=== PATIENT | female | born 1975 | race Hispanic/Latino ===

== ENCOUNTER 2021-03-04 14:51 | Emergency (ER) | payer SELFPAY ==
[2021-03-04] MEDS ORDERED: Lidocaine 1% (PF) 30 ML VIAL ONE (15:08)
[2021-03-04] MEDS ORDERED: Bacitracin 1 PK ONE (15:34)
== END 2021-03-04 16:00 | disposition home or self-care (01) ==
LOC: CSHERS 14:51
DX: L60.0 Ingrowing nail (principal)
CPT/HCPCS: 10060; J2001

== ENCOUNTER 2023-07-29 01:16 | Observation (INO) | payer MEDICAID, OTHER ==
[2023-07-29] MEDS ORDERED: Ondansetron PF 4 MG/2 ML Vial IVP PRN (02:18)
[2023-07-29 02:22] VITALS: BMI 27.9
[2023-07-29] MEDS ORDERED: Lactated Ringer's 1,000 ML IV SCH (02:30)
[2023-07-29] MEDS: Morphine 2 MG/ML VIAL SLOW IVP PRN ×2 (03:29→07:52)
[2023-07-29 03:49] LABS: #Eosinphils 0.2 10x3/uL (0.0-0.5); #Monocytes 0.5 10x3/uL (0.0-1.1); #Neutrophils 4.8 10x3/uL (1.5-8.4); %Basophils 0.4 % (0.0-2.0); %Lymphocytes 32.3 % (18.0-47.0); %Monocytes 6.1 % (0.0-10.0); %Neutrophils 58.7 % (40.0-75.0); Hematocrit 25.4 % (34.9-44.5); Mean Corpuscular HGB CONC 35.4 g/dL (32.0-36.0); Mean Corpuscular Hemoglobin 31.9 pg (27.0-33.0); Mean Corpuscular Volume 90.1 fl (81.6-98.3); Mean Platelet Volume 10.6 fl (7.4-10.4); Platelet Count 208 10x3/uL (150-450); RBC Distribution Width 11.8 % (11.5-14.5); Red Blood Cell (RBC) Count 2.82 10x6/uL (3.90-5.03); White Blood Cell (WBC) Count 8.2 10x3/uL (3.5-10.5)
[2023-07-29 04:32] LABS: Bilirubin Neg (Negative); Blood, Urine Negative (Negative); Clarity Clear (Clear); Glucose, Urine (Dipstick) Normal (Negative); Ketone, Urine Negative (Negative); Leukocyte Negative (Negative); Nitrite Negative (Negative); Protein, Urine (Dipstick) 30 mg/dl (Neg-Trace); Urobilinogen Normal mg/dL (Less than 2)
[2023-07-29 05:01] LABS: Squamous Epithelial 0-3 HPF (0-3); WBC/HPF 0-3 HPF (0-3)
[2023-07-29 05:02] LABS: RBC/HPF None Seen HPF (0-3)
[2023-07-29 05:03] LABS: Calcium Oxalate Crystals 3+ HPF (None Seen)
[2023-07-29] MEDS ORDERED: Misoprostol 200 MCG TAB ONE (08:55)
[2023-07-29] MEDS ORDERED: Methylergonovine 0.2 MG/ML VIAL ONE (08:56)
[2023-07-29] MEDS ORDERED: Doxycycline 100 MG CAP PO SCH (09:00)
[2023-07-29] MEDS ORDERED: Lidocaine 2% PF 5 ML VIAL ONE (09:09)
[2023-07-29] MEDS ORDERED: PROPOFOL 20 ML ONE (09:09)
[2023-07-29] MEDS ORDERED: Ondansetron PF 4 MG/2 ML Vial ONE (09:09)
[2023-07-29] MEDS ORDERED: Midazolam HCl 2 mg/2 ml Vial ONE (09:09)
[2023-07-29] MEDS ORDERED: fentaNYL 50 mcg/mL 1 mL Vial ONE (09:09)
[2023-07-29] MEDS ORDERED: Succinylcholine 200 MG/10 ml SYRINGE FS ONE (09:09)
[2023-07-29] MEDS ORDERED: Rocuronium Bromide 10 MG/ML (10ML VIAL) ONE (09:09)
[2023-07-29] MEDS ORDERED: Dexamethasone 4 mg/ml Vial ONE (09:09)
[2023-07-29] MEDS ORDERED: HYDROcodone/Acetaminophen 5/325 mg Tablet PO PRN ×2 (10:28)
[2023-07-29 11:23] VITALS: TEMP 98
[2023-07-29] MEDS ORDERED: Ibuprofen 800 MG TAB PO SCH (12:00)
[2023-07-29 12:37] VITALS: BP 114/58
[2023-07-29] MEDS ORDERED: Acetaminophen 650 MG/20.3 ML UDCUP PO SCH (14:00)
== END 2023-07-29 14:45 | disposition home or self-care (01) ==
LOC: INTOOBSV 01:16 → CSHPED 01:16
PROVIDERS: ADMIT Obstetrics & Gynecology; ATTEND Obstetrics & Gynecology
PROC: 10D17ZZ Extraction of Products of Conception, Retained, Via Natural or Artificial Opening (ICD-10-PCS; principal; 2023-07-29)
DX: O03.4 Incomplete spontaneous abortion without complication (principal); I10 Essential (primary) hypertension; Z79.899 Other long term (current) drug therapy
CPT/HCPCS: 36415; 51701; 76856; 80053; 84702; 85025; 85610; 85730; 86850; 86900; 86901; 88305; 96374; 96375; 96376; G0378; J1100; J2001; J2210; J2250; J2270; J2272; J2405; J2704; J3010; J7120